=== PATIENT | female | born 1995 ===

== ENCOUNTER 2017-10-18 11:52 | Emergency (ER) | payer SELFPAY ==
[2017-10-18] MEDS ORDERED: Ketorolac Tromethamine 30 MG/ML VIAL ONE (12:50)
[2017-10-18] MEDS ORDERED: Acetaminophen 500 MG TAB ONE (12:50)
== END 2017-10-18 13:19 | disposition home or self-care (01) ==
LOC: ERS 11:52
DX: S39.012A Strain of muscle, fascia and tendon of lower back, initial encounter (principal); X58.XXXA Exposure to other specified factors, initial encounter; Y92.69 Other specified industrial and construction area as the place of occurrence of the external cause
CPT/HCPCS: 96372; J1885